=== PATIENT | female | born 1930 | race Caucasian/White ===

== ENCOUNTER 2018-12-18 19:14 | Inpatient (IN) | payer MEDICARE, MEDICAID ==
[~2018-12-18] VITALS: Ht 154.9 cm; Wt 68.1 kg
--- NOTE | ~2018-12-18 | EKG ---
[place], [place] ELECTROCARDIOGRAM REPORT NAME: RICARDA CHAUDHRY UNIT #: [id number] ROOM: 406 DOCTOR: CHACHOANY DRAFT REPORT BIRTHDATE: [birth year] [facility] Test Date: 2018-12-18 Test Time: 20:05:43 Pat Name: RICARDA CHAUDHRY Department: Room: 406 Gender: F Intertype Operator: Peter Long : 1930 Requested By: YAN MERLOS Order Number: [id number] Reading MD: Angelina Phan Measurements Intervals [place] Rate: 96 P: 48 MI: 170 QRS: -17 QRSD: 87 T: 15 QT: 385 QTc: 487 Interpretive Statements Sinus rhythm Borderline left axis deviation Anteroseptal infarct, old Borderline prolonged QT interval Electronically Signed On 12-19-2018 9:25:33 PDT by Angelina Phan CM:EKGRPT:ELECTROCARDIOGRAM REPORT 04 4 YAN MERLOS MD EPIPHANY DRAFT REPORT YAN MERLOS MD
[2018-12-18 19:14] VITALS: BP 185/91
[~2018-12-18 19:14] MED LIST: BISACODYL10 MG RC; CLOPIDOGREL75 MG PO; DOCUSATE100 MG PO; FERROUS SULFAT325 MG PO; LEVOTHYROXINE75 MCG PO; MEDROL DOSEPAK4 MG PO; TRAMADOL50 MG PO; TYLENOL EXTRA500 MG PO
[2018-12-18] MEDS ORDERED: LIPITOR10 MG PO (19:33)
[2018-12-18] MEDS ORDERED: DULOXETINE HCL60 MG PO (19:34)
[2018-12-18] MEDS ORDERED: GABAPENTIN600 MG PO (19:34)
[2018-12-18] MEDS ORDERED: CLOPIDOGREL75 MG PO (19:34)
[2018-12-18] MEDS ORDERED: HYDROCODONE-AC1 EAC1 PO (19:35)
[2018-12-18] MEDS ORDERED: LISINOPRIL20 MG PO (19:36)
[2018-12-18] MEDS ORDERED: LOPERAMIDE HCL2 MG PO (19:38)
[2018-12-18] MEDS ORDERED: IMODIUM A-D2 M2 PO (19:38)
[2018-12-18] MEDS ORDERED: VITAMIN D32000 UNIT PO (19:39)
[2018-12-18 20:21] LABS: ACT PARTIAL THROMBO TIME 23.8 SECONDS (20.0-32.1); INTERNATIONAL NORM RATIO 0.9 (2.0-3.5)
[2018-12-18 20:26] LABS: ALBUMIN 3.6 gm/dl (3.1-4.5); ALKALINE PHOSPHATASE 114 U/L (45-117); BUN 13 mg/dl (7-24); CHLORIDE 103 mmol/L (98-107); CREATININE 0.86 mg/dL (0.55-1.02); LIPASE 159 U/L (73-393); POTASSIUM 3.9 mmol/L (3.5-5.1); SGOT/AST 23 IU/L (3-35); SGPT/ALT 12 U/L (12-78); SODIUM 136 mmol/L (136-145); TOTAL PROTEIN 7.7 gm/dL (6.4-8.2)
[2018-12-18 20:29] LABS: BASO % 0.4 % (0.0-1.0); EOS % 0.3 % (1.0-4.0); HEMATOCRIT 45.2 % (37.0-47.0); HEMOGLOBIN 14.7 g/dl (12.0-16.0); LYMPH # 0.8 10*3/uL (1.3-4.4); LYMPH % 7.3 % (27.0-41.0); MEAN CELL VOLUME 99.8 fl (81.0-99.0); MEAN CORPUSCULAR HGB 32.5 pg (27.0-31.0); MEAN CORPUSCULAR HGB CONC 32.5 g/dl (33.0-37.0); MEAN PLATELET VOLUME 9.2 fl (9.6-12.3); MONO % 9.2 % (3.0-9.0); NEUT # 8.7 10*3/uL (2.3-7.9); NEUT % 82.5 % (47.0-73.0); PLATELET COUNT AUTOMATED 234 10*3/uL (130-400); RED BLOOD COUNT 4.53 10*6/uL (4.10-5.10); RED CELL DISTRI WIDTH 13.2 % (0-14.5); WHITE BLOOD COUNT 10.5 10*3/uL (4.8-10.8)
[2018-12-18 20:32] VITALS: BP 174/74
[2018-12-18 20:33] LABS: TROPONIN I < 0.015 ng/ml (<0.045)
[2018-12-18 20:34] LABS: BILIRUBIN NEGATIVE (NEGATIVE); BLOOD NEGATIVE (NEGATIVE); CLARITY CLEAR (CLEAR); COLOR YELLOW (YELLOW); GLUCOSE NEGATIVE (NEGATIVE); KETONE 1+ (NEGATIVE); LEUKO ESTERASE NEGATIVE (NEGATIVE); NITRITE NEGATIVE (NEGATIVE)
[2018-12-18 20:40] LABS: RBC 0-2 rbc/hpf (0-2); WBC 0-2 wbc/hpf (0-5)
[2018-12-18 21:16] VITALS: BP 138/70
--- NOTE | 2018-12-18 21:34 | NUR ---
THIS RN SPOKE WITH KEILA FROM [facility] AND UPDATED HER ON PT PLAN OF ADMISSION AND DIAGNOSIS.
--- NOTE | 2018-12-18 21:45 | NUR ---
PHOTO TAKEN OF WOUND TO RIGHT SIDE OF FACE.
[2018-12-18 21:51] VITALS: BP 140/75
[2018-12-18 22:30] VITALS: BP 154/65
[2018-12-18 23:00] VITALS: BP 145/72
--- NOTE | 2018-12-18 23:01 | NUR ---
Time: 2299 A 88 year old FEMALE admitted to 4E under services of BELLA COTTON DO. Pt. arrived via bed from ER. Chief complaint: PNEUMONIA, SEPSIS. PATIENT ORIENTED TO THE FLOOR 4E CALL LIGHT SYSTEM REVIEWED FORMS COMPLETED DOCTORS NOTIFIED THAT PATIENT HAS ARRIVED TO THE FLOOR AND MED REC IS UPDATED MITZI CAPELLAN
[2018-12-19] VITALS: BP 131/53
[2018-12-19 06:19] LABS: HEMATOCRIT 44.5 % (37.0-47.0); HEMOGLOBIN 14.1 g/dl (12.0-16.0); MEAN CELL VOLUME 100.9 fl (81.0-99.0); MEAN CORPUSCULAR HGB CONC 31.7 g/dl (33.0-37.0); MEAN PLATELET VOLUME 9.6 fl (9.6-12.3); PLATELET COUNT AUTOMATED 225 10*3/uL (130-400); RED BLOOD COUNT 4.41 10*6/uL (4.10-5.10); RED CELL DISTRI WIDTH 13.2 % (0-14.5); WHITE BLOOD COUNT 8.5 10*3/uL (4.8-10.8)
--- NOTE | 2018-12-19 06:40 | NUR ---
RICARDA CHAUDHRY [id number] Please refer to the physician's history and physical for past medical history, comorbid conditions, and allergies. Diagnosis: SEPSIS LEFT LOWER LOBE PNEUMONIA Alex Score: 12,HIGH RISK WOUND DESCRIPTIONS: Wound Number: 1 Location of the wound: right side of face near ear Type of wound: none Thickness: Full Size: 5.1cm x 1.0cm x 0.1cm Tunneling: none Undermining: none Sinus Tract: none Presence of Exudate: none Amount: None Color: Brown, red, yellow Odor: None Periwound Skin Appearance: Normal Wound edges: approximated Pain (associated with wound): none at time of assessment How does patient state this happened? patient states she had surgery last night this nurse called [facility] to see if there were an origin to area and [facility] night nurse stated that the area comes and goes for as long as she could remember Surface the patient is resting on: Isoflex SKIN PREVENTION RECOMMENDATION: 1. Pressure redistribution support surface as appropriate 2. Elevate heels 3. Remove boots/TEDS every shift and reapply 4. Head of bed 30 degrees as tolerated 5. Assess nutrition and hydration 6. Manage moisture 7. Avoid the use of containment devices while in bed 8. Use absorptive products on surfaces limit layers of linens on bed 9. Turn and reposition every 1-2 hours in bed and every 1 hour in chair as tolerated 10. Weight shifts every 15 minutes while up in chair 11. Offloading with pillows or device to keep heels elevated off bed 12. Monitor skin at least every shift 13. Inspect under medical devices twice a day WOUND TREATMENT RECOMMENDATIONS: Full thickness guidelines: Cleanse right side of face near ear apply therahoney and cover with dsd daily and prn for soiling.
[2018-12-19 06:57] LABS: BUN 15 mg/dl (7-24); CHLORIDE 108 mmol/L (98-107); POTASSIUM 3.7 mmol/L (3.5-5.1); SODIUM 142 mmol/L (136-145)
[2018-12-19 07:06] LABS: THYROID STIM HORMONE (HS) 0.178 uIU/ml (0.358-4.75)
--- NOTE | 2018-12-19 07:37 | NUR ---
Nursing screen receieved and occupational therapy orders receieved. The chart has been reviewed. Thank you. Shira Lazar OTR/L
[2018-12-19 07:47] LABS: TOTAL CELLS COUNTED 100 #CELLS
[2018-12-19 07:48] LABS: PLATELET SUFFICIENCY NORMAL (NORMAL)
[2018-12-19 08:00] VITALS: BP 158/72
--- NOTE | 2018-12-19 08:35 | NUR ---
Dr. Villa notified of wound care recommendations.
--- NOTE | 2018-12-19 09:00 | NUR ---
PHYSICAL THERAPY Nursing screen received and chart reviewed. Physical therapy referral recevied. Thank you. Jeny Muñoz,PT,DPT.
--- NOTE | 2018-12-19 09:00 | NUR ---
case management visits with patient, patient is confused, per chart she is a resident of [facility], kit planner will contact [facility] and see if patient is able to return when medically stable
--- NOTE | 2018-12-19 09:26 | NUR ---
Upon discharge recommend patient to follow up for wound care in outpatient setting continue current wound care orders at discharging facility.
--- NOTE | 2018-12-19 09:28 | NUR ---
PHYSICAL THERAPY Physical therapy evaluation attempted. Patient reports she is unable to answer questions at this time due to a previous stroke. Patient confused and presenting with aphasia at this time. Will try again at a later time/date. Thank you. Jeny Muñoz,PT,DPT.
--- NOTE | 2018-12-19 09:29 | NUR ---
Occupational therapy orders receieved and chart review. Patient asked occupational therapist and physical therapist "to come back later." Patient was sleeping upon arrival. Will follow up with patient. Thank you for the referral. Shira Lazar, OTR/L
--- NOTE | 2018-12-19 10:36 | NUR ---
Spoke with Dr. Villa regarding need for wound care orders for area behind rt ear.
--- NOTE | 2018-12-19 11:07 | NUR ---
Dressing applied to rt ear per orders.
--- NOTE | 2018-12-19 11:24 | NUR ---
PHYSICAL THERAPY Physical therapy evaluation attempted. Patient still presents with aphasia and states, "Oh I can't walk right now." Patient confused and fatigued at this time. Will try again at a later time/date. Thank you. Jeny Muñoz,PT,DPT.
[2018-12-19 12:00] VITALS: BP 162/84
--- NOTE | 2018-12-19 12:07 | NUR ---
Contacted [facility] and spoke with fashion director, Hillary. She stated patient is from regular assisted living and is ok to return when she is medically stable for discharge.
--- NOTE | 2018-12-19 13:55 | NUR ---
Occupational therapy orders receieved and chart reviewed this date, 12/19/18. Patient asking for therapists to return another time. Will follow up with patient. Thank you for the referral. Shira Lazar OTR/L
[2018-12-19 16:00] VITALS: BP 155/78
[2018-12-19 20:00] VITALS: BP 154/70
--- NOTE | 2018-12-19 20:31 | NUR ---
24 HR chart check completed.
[2018-12-20] VITALS: BP 140/61; BP 168/76
--- NOTE | 2018-12-20 05:46 | NUR ---
THIS PATIENT PULLED HER IV ACCESS OUT. SHE REFUSED TO HAVE ANOTHER IV STARTED. SHE TOOK HER NASAL CANULLA OUT AND REFUSED TO PUT IT BACK IN SAO2 96%. DOCTOR AWARE AND WILL VISIT WITH PATIENT TODAY. DOCTOR ALSO NOTIFIED THAT AN ORDER TO REMOVE MAC CATHETER NOTED IN PROGRESS NOTES BUT THE ACUAL ORDER WAS NOT WROTE. NEW ORDERS RECEIVED TO REMOVE MAC CATHETER.
[2018-12-20 06:27] LABS: BASO % 0.4 % (0.0-1.0); EOS # 0.3 10*3/uL (0.0-0.4); EOS % 2.8 % (1.0-4.0); HEMOGLOBIN 16.2 g/dl (12.0-16.0); LYMPH # 1.3 10*3/uL (1.3-4.4); MEAN CELL VOLUME 98.8 fl (81.0-99.0); MEAN CORPUSCULAR HGB CONC 32.4 g/dl (33.0-37.0); MEAN PLATELET VOLUME 9.6 fl (9.6-12.3); MONO # 1.3 10*3/uL (0.1-1.0); MONO % 14.7 % (3.0-9.0); NEUT # 6.1 10*3/uL (2.3-7.9); NEUT % 67.8 % (47.0-73.0); PLATELET COUNT AUTOMATED 254 10*3/uL (130-400); RED BLOOD COUNT 5.06 10*6/uL (4.10-5.10); RED CELL DISTRI WIDTH 13.3 % (0-14.5)
[2018-12-20 06:39] LABS: BUN 10 mg/dl (7-24); CHLORIDE 107 mmol/L (98-107); CREATININE 0.87 mg/dL (0.55-1.02); POTASSIUM 3.7 mmol/L (3.5-5.1); SODIUM 138 mmol/L (136-145)
[2018-12-20 08:00] VITALS: BP 152/78
[2018-12-20 11:49] VITALS: BP 146/75
[2018-12-20 16:00] VITALS: BP 126/53
[2018-12-20 16:12] VITALS: BP 118/50
[2018-12-20 20:00] VITALS: BP 153/75
[2018-12-21] VITALS: BP 140/61
--- NOTE | 2018-12-21 01:58 | NUR ---
24 HR chart check completed.
--- NOTE | 2018-12-21 02:31 | NUR ---
ATTEMPTED X 3 TO OBTAIN SPUTUM CULTURE. THIS PATIENT WAS UNABLE TO COUGH ANYTHING UP.
[2018-12-21 08:00] VITALS: BP 106/52; BP 150/68
[2018-12-21] MEDS ORDERED: HYDROCODONE-AC1 EAC1 PO (08:45)
[2018-12-21] MEDS ORDERED: LEVAQUIN750 M1 PO (08:46)
[2018-12-21 12:00] VITALS: BP 114/66
--- NOTE | 2018-12-21 16:12 | NUR ---
REPORT CALLED TO [facility], IV REMOVED. PT FRIEND HERE TO ASSISTANT INVENTORY MANAGER PATIENT TO TRANSPORT BACK TO [facility]. DISCHARGE INSTRUCTIONS SENT WITH PATIENT TO [facility], RX FOR LEVAQUIN SENT WITH PATIENT. PT DISCHARGE VIA WHEELCHAIR
== END 2018-12-21 16:12 | disposition other institution (70) | DRG 871 ==
LOC: ED 19:14 → 4E 21:12 → EDHOLD 21:12 → 4E 22:01
PROVIDERS: Emergency Medicine Emergency Medical Services; Family Medicine; Student in an Organized Health Care Education/Training Program; ADMIT Internal Medicine
DX: A41.9 Sepsis, unspecified organism (principal); J96.01 Acute respiratory failure with hypoxia; G93.41 Metabolic encephalopathy; J18.1 Lobar pneumonia, unspecified organism; R65.20 Severe sepsis without septic shock; E78.5 Hyperlipidemia, unspecified; M79.2 Neuralgia and neuritis, unspecified; E03.9 Hypothyroidism, unspecified; F03.90 Unspecified dementia, unspecified severity, without behavioral disturbance, psychotic disturbance, mood disturbance, and anxiety; Z66 Do not resuscitate; Z51.5 Encounter for palliative care; I10 Essential (primary) hypertension; R73.9 Hyperglycemia, unspecified; E83.41 Hypermagnesemia; Z88.0 Allergy status to penicillin; Z88.6 Allergy status to analgesic agent; Z88.5 Allergy status to narcotic agent; Z88.2 Allergy status to sulfonamides; Z88.7 Allergy status to serum and vaccine; Z91.81 History of falling; Z90.49 Acquired absence of other specified parts of digestive tract; Z86.73 Personal history of transient ischemic attack (TIA), and cerebral infarction without residual deficits; Z79.899 Other long term (current) drug therapy; Z79.02 Long term (current) use of antithrombotics/antiplatelets

== ENCOUNTER 2019-03-14 06:44 | Emergency (ER) | payer MEDICARE, MEDICAID ==
[~2019-03-14] VITALS: Ht 162.5 cm; Wt 69.9 kg
--- NOTE | ~2019-03-14 | EKG ---
[place], [place] ELECTROCARDIOGRAM REPORT NAME: RICADRA CHAUDHRY UNIT #: [id number] ROOM: DOCTOR: EPIPHANY DRAFT REPORT BIRTHDATE: [birth year] [facility] Test Date: 2019-03-14 Test Time: 07:37:47 Pat Name: RICARDA CHAUDHRY Department: Room: Gender: F Oven [employer]ater: : 1930 Requested By: YAN MERLOS Order Number: [id number] Reading MD: Paul Beavers MD Measurements Intervals [place] Rate: 74 P: 58 VA: 161 QRS: -14 QRSD: 80 T: 25 QT: 419 QTc: 465 Interpretive Statements Sinus rhythm Atrial premature complex Compared to ECG 12/18/2018 20:05:43 Atrial premature complex(es) now present Myocardial infarct finding no longer present Electronically Signed On 03-16-2019 8:15:42 PST by Paul Beavers MD CM:EKGRPT:ELECTROCARDIOGRAM REPORT [id number] YAN MERLOS MD EPIPHANY DRAFT REPORT YAN MERLOS MD
[~2019-03-14 06:44] MED LIST changes: +DULOXETINE HCL60 MG PO; +GABAPENTIN600 MG PO; +HYDROCODONE-AC1 EAC1 PO; +IMODIUM A-D2 M2 PO; +LEVAQUIN750 M1 PO; +LIPITOR10 MG PO; +LISINOPRIL20 MG PO; +LOPERAMIDE HCL2 MG PO; +VITAMIN D32000 UNIT PO
[2019-03-14 07:13] LABS: BASO # 0.1 10*3/uL (0.0-0.1); BASO % 0.8 % (0.0-1.0); EOS # 0.3 10*3/uL (0.0-0.4); EOS % 5.2 % (1.0-4.0); HEMATOCRIT 47.8 % (37.0-47.0); HEMOGLOBIN 15.3 g/dl (12.0-16.0); LYMPH # 1.1 10*3/uL (1.3-4.4); LYMPH % 16.6 % (27.0-41.0); MEAN CELL VOLUME 101.1 fl (81.0-99.0); MEAN CORPUSCULAR HGB 32.3 pg (27.0-31.0); MEAN PLATELET VOLUME 9.3 fl (9.6-12.3); MONO # 0.8 10*3/uL (0.1-1.0); MONO % 12.6 % (3.0-9.0); NEUT # 4.1 10*3/uL (2.3-7.9); NEUT % 64.6 % (47.0-73.0); PLATELET COUNT AUTOMATED 266 10*3/uL (130-400); RED BLOOD COUNT 4.73 10*6/uL (4.10-5.10); RED CELL DISTRI WIDTH 13.8 % (0-14.5); WHITE BLOOD COUNT 6.3 10*3/uL (4.8-10.8)
[2019-03-14 07:25] LABS: ACT PARTIAL THROMBO TIME 27.9 SECONDS (20.0-32.1); INTERNATIONAL NORM RATIO 0.9 (2.0-3.5)
[2019-03-14 07:31] LABS: ALBUMIN 3.6 gm/dl (3.1-4.5); ALKALINE PHOSPHATASE 103 U/L (45-117); BUN 17 mg/dl (7-24); CHLORIDE 108 mmol/L (98-107); CREATININE 1.03 mg/dL (0.55-1.02); LIPASE 543 U/L (73-393); POTASSIUM 4.3 mmol/L (3.5-5.1); SGOT/AST 28 IU/L (3-35); SGPT/ALT 20 U/L (12-78); SODIUM 143 mmol/L (136-145); TOTAL PROTEIN 7.3 gm/dL (6.4-8.2)
[2019-03-14 07:46] LABS: TROPONIN I < 0.015 ng/ml (<0.045)
== END 2019-03-14 08:57 | disposition home or self-care (01) ==
LOC: ED 06:44
PROVIDERS: Emergency Medicine Emergency Medical Services
DX: T14.8XXA Other injury of unspecified body region, initial encounter (principal); M25.552 Pain in left hip; M25.512 Pain in left shoulder; R07.81 Pleurodynia; R51 Headache; I10 Essential (primary) hypertension; E78.5 Hyperlipidemia, unspecified; E03.9 Hypothyroidism, unspecified; M19.90 Unspecified osteoarthritis, unspecified site; Z86.73 Personal history of transient ischemic attack (TIA), and cerebral infarction without residual deficits; Z88.0 Allergy status to penicillin; Z88.2 Allergy status to sulfonamides; Z88.6 Allergy status to analgesic agent; Z88.7 Allergy status to serum and vaccine; Z79.899 Other long term (current) drug therapy; W06.XXXA Fall from bed, initial encounter; Y93.89 Activity, other specified; Y92.122 Bedroom in nursing home as the place of occurrence of the external cause; Y99.8 Other external cause status

== ENCOUNTER 2019-07-26 10:41 | Emergency (ER) | payer MEDICARE, MEDICAID | END 2019-07-26 12:51 | disposition home or self-care (01) | LOC: ED 10:41 | DX: M54.2 Cervicalgia (principal); I10 Essential (primary) hypertension; E78.5 Hyperlipidemia, unspecified; E03.9 Hypothyroidism, unspecified; Z88.5 Allergy status to narcotic agent; Z88.0 Allergy status to penicillin; Z88.8 Allergy status to other drugs, medicaments and biological substances; Z79.899 Other long term (current) drug therapy; Z79.2 Long term (current) use of antibiotics; W19.XXXA Unspecified fall, initial encounter; Y93.89 Activity, other specified; Y92.128 Other place in nursing home as the place of occurrence of the external cause; Y99.8 Other external cause status ==

== ENCOUNTER 2020-05-23 13:22 | Emergency (ER) | payer MEDICARE ==
[~2020-05-23] VITALS: Wt 71.6 kg
== END 2020-05-23 18:19 | disposition home or self-care (01) ==
LOC: ED 13:22
DX: S72.011A Unspecified intracapsular fracture of right femur, initial encounter for closed fracture (principal); I10 Essential (primary) hypertension; E78.5 Hyperlipidemia, unspecified; E03.9 Hypothyroidism, unspecified; Z88.0 Allergy status to penicillin; Z88.2 Allergy status to sulfonamides; Z88.6 Allergy status to analgesic agent; Z88.7 Allergy status to serum and vaccine; Z79.899 Other long term (current) drug therapy; X58.XXXA Exposure to other specified factors, initial encounter; Y93.89 Activity, other specified; Y92.89 Other specified places as the place of occurrence of the external cause; Y99.8 Other external cause status

== ENCOUNTER 2020-06-30 12:37 | Emergency (ER) | payer MEDICARE ==
[~2020-06-30] VITALS: Ht 157.4 cm; Wt 72.2 kg
[2020-06-30 13:10] LABS: BASO % 0.5 % (0.0-1.0); EOS # 0.4 10*3/uL (0.0-0.4); EOS % 4.8 % (1.0-4.0); HEMATOCRIT 45.5 % (37.0-47.0); LYMPH # 1.3 10*3/uL (1.3-4.4); MEAN CELL VOLUME 97.2 fl (81.0-99.0); MEAN CORPUSCULAR HGB 31.6 pg (27.0-31.0); MEAN CORPUSCULAR HGB CONC 32.5 g/dl (33.0-37.0); MEAN PLATELET VOLUME 9.5 fl (9.6-12.3); MONO # 1.1 10*3/uL (0.1-1.0); MONO % 14.3 % (3.0-9.0); NEUT # 4.9 10*3/uL (2.3-7.9); NEUT % 63.1 % (47.0-73.0); PLATELET COUNT AUTOMATED 309 10*3/uL (130-400); RED BLOOD COUNT 4.68 10*6/uL (4.10-5.10); RED CELL DISTRI WIDTH 13.8 % (0-14.5); WHITE BLOOD COUNT 7.8 10*3/uL (4.8-10.8)
[2020-06-30 13:20] LABS: INTERNATIONAL NORM RATIO 0.9 (2.0-3.5)
[2020-06-30 13:27] LABS: ALBUMIN 3.3 gm/dl (3.1-4.5); ALKALINE PHOSPHATASE 123 U/L (45-117); BUN 36 mg/dl (7-24); CHLORIDE 106 mmol/L (98-107); CREATININE 1.37 mg/dL (0.55-1.02); POTASSIUM 3.9 mmol/L (3.5-5.1); SGOT/AST 22 IU/L (3-35); SGPT/ALT 18 U/L (12-78); SODIUM 141 mmol/L (136-145); TOTAL PROTEIN 7.1 gm/dL (6.4-8.2)
[2020-06-30 13:32] LABS: TROPONIN I < 0.015 ng/ml (<0.045)
[2020-06-30 14:44] LABS: BILIRUBIN Negative (Negative); BLOOD Negative (Negative); CLARITY Clear (Clear); COLOR Yellow (Yellow); GLUCOSE Negative (Negative); KETONE Negative (Negative); LEUKO ESTERASE Negative (Negative); NITRITE Negative (Negative); UROBILINOGEN 0.2 E.U./dl (0.0-1.0)
[2020-06-30 14:58] LABS: BACTERIA TRACE; RBC 0-2 rbc/hpf (0-2); WBC 0-2 wbc/hpf (0-5)
== END 2020-06-30 16:00 ==
LOC: ED 12:37
PROVIDERS: Physician Assistant
DX: Z04.3 Encounter for examination and observation following other accident (principal); Z88.0 Allergy status to penicillin; Z88.2 Allergy status to sulfonamides; Z88.5 Allergy status to narcotic agent; Z79.899 Other long term (current) drug therapy; Z98.890 Other specified postprocedural states; W19.XXXA Unspecified fall, initial encounter; Y93.89 Activity, other specified; Y92.89 Other specified places as the place of occurrence of the external cause; Y99.8 Other external cause status

== ENCOUNTER 2020-11-09 12:04 | Emergency (ER) | payer MEDICARE ==
[~2020-11-09] VITALS: Wt 70.3 kg
[2020-11-09 13:53] LABS: BASO % 0.4 % (0.0-1.0); EOS # 0.3 10*3/uL (0.0-0.4); EOS % 3.1 % (1.0-4.0); HEMATOCRIT 50.1 % (37.0-47.0); LYMPH % 11.8 % (27.0-41.0); MEAN CORPUSCULAR HGB 31.5 pg (27.0-31.0); MEAN CORPUSCULAR HGB CONC 32.1 g/dl (33.0-37.0); MEAN PLATELET VOLUME 9.4 fl (9.6-12.3); MONO # 0.8 10*3/uL (0.1-1.0); MONO % 9.7 % (3.0-9.0); NEUT # 6.4 10*3/uL (2.3-7.9); NEUT % 74.8 % (47.0-73.0); PLATELET COUNT AUTOMATED 319 10*3/uL (130-400); RED BLOOD COUNT 5.11 10*6/uL (4.10-5.10); RED CELL DISTRI WIDTH 13.6 % (0-14.5); WHITE BLOOD COUNT 8.5 10*3/uL (4.8-10.8)
[2020-11-09 14:10] LABS: ALBUMIN 3.6 gm/dl (3.1-4.5); ALKALINE PHOSPHATASE 130 U/L (45-117); BUN 19 mg/dl (7-24); CHLORIDE 110 mmol/L (98-107); CREATININE 0.89 mg/dL (0.55-1.02); POTASSIUM 4.1 mmol/L (3.5-5.1); SGOT/AST 23 IU/L (3-35); SGPT/ALT 17 U/L (12-78); SODIUM 141 mmol/L (136-145); TOTAL PROTEIN 7.5 gm/dL (6.4-8.2)
[2020-11-09 14:39] LABS: BILIRUBIN Negative (Negative); BLOOD Negative (Negative); CLARITY Clear (Clear); COLOR Yellow (Yellow); GLUCOSE Negative (Negative); KETONE Negative (Negative); LEUKO ESTERASE Negative (Negative); NITRITE Negative (Negative); UROBILINOGEN 0.2 E.U./dl (0.0-1.0)
[2020-11-09 14:58] LABS: BACTERIA TRACE; RBC 0-2 rbc/hpf (0-2); WBC 0-2 wbc/hpf (0-5)
== END 2020-11-09 21:27 | disposition home or self-care (01) ==
LOC: ED 12:04
PROVIDERS: Emergency Medicine
DX: M87.059 Idiopathic aseptic necrosis of unspecified femur (principal); M16.11 Unilateral primary osteoarthritis, right hip; I10 Essential (primary) hypertension; E78.5 Hyperlipidemia, unspecified; E03.9 Hypothyroidism, unspecified; Z88.8 Allergy status to other drugs, medicaments and biological substances; Z88.0 Allergy status to penicillin; Z88.2 Allergy status to sulfonamides; Z88.6 Allergy status to analgesic agent; Z88.5 Allergy status to narcotic agent; Z88.7 Allergy status to serum and vaccine; Z79.899 Other long term (current) drug therapy; Z86.73 Personal history of transient ischemic attack (TIA), and cerebral infarction without residual deficits; Z90.711 Acquired absence of uterus with remaining cervical stump; Z96.652 Presence of left artificial knee joint